=== PATIENT | male | born 1980 | race Caucasian/White ===

== ENCOUNTER 2020-12-05 08:00 | Outpatient (CLI) | payer OTHER ==
--- NOTE | 2020-12-07 12:13 | XRAY Report ---
PROCEDURE: Cervical Spine 2 View INDICATIONS: CERVICAL RADICULOPATHY TECHNIQUE: 3 view(s) of the cervical spine were acquired. COMPARISON: None. FINDINGS: Straightening of usual cervical lordosis, likely degenerative. Mild disc height loss at C4-C5, C5-C6, and C6-C7 with associated uncovertebral and facet hypertrophy at these levels. No evidence of fractu re. Odontoid view is normal. The dens is intact. Normal atlantodental interval. Vertebral body height s maintained. No listhesis. IMPRESSION: No traumatic finding. Given the reported radicular symptoms, this MRI would be recommend ed. Reviewed by: Larry Perkins MD on 12/07/2020 12:11 PM PDT Approved by: Larry Perkins MD on 12/07/2020 12:11 PM PDT Station ID: [id number]
== END 2020-12-05 23:59 | disposition home or self-care (01) ==
LOC: DI.S 08:00
PROVIDERS: ATTEND Emergency Medicine
DX: M54.12 Radiculopathy, cervical region (principal); M54.2 Cervicalgia

== ENCOUNTER 2021-02-05 08:00 | Outpatient (CLI) | payer OTHER ==
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
== END 2021-02-05 23:59 | disposition home or self-care (01) ==
LOC: DI.S 08:00
PROVIDERS: ATTEND Physician Assistant Medical
DX: M25.512 Pain in left shoulder (principal)